=== PATIENT | female | born 1980 | race Caucasian/White ===

== ENCOUNTER 2016-08-06 07:41 | Emergency (ER) | payer OTHER ==
[~2016-08-06] VITALS: Ht 154.9 cm; Wt 76.2 kg
[~2016-08-06 07:41] MED LIST: HYDR-2666 PO; HYDR-971 PO; HYDR115S2 PO; IBUP-1060 PO; NAPR375T3 PO; NAPR500T PO
[2016-08-06 08:11] LABS: BILIRUBIN,URINE NEGATIVE (NEG); GLUCOSE,URINE NEGATIVE (NEG); NITRITE,URINE NEGATIVE (NEG); PH,URINE 6.5; PROTEIN,URINE NEGATIVE (NEG-TRACE); UROBILINOGEN,URINE 0.2 mg/dL (0.2 mg/dL)
[2016-08-06 08:24] LABS: BACTERIA,URINE FEW /HPF (0-FEW); RBC,URINE OCC /HPF (0-2); SQUAMOUS EPITHELIAL CELL,UR MANY /LPF
[2016-08-06] MEDS ORDERED: IV NORMAL SALINE 1000ML BAG 1,000 ML IV ONE (08:30)
[2016-08-06] MEDS ORDERED: METOCLOPRAMIDE HCL 10 MG/2 ML VIAL. IV ONE (08:30)
[2016-08-06] MEDS ORDERED: DIPHENHYDRAMINE 50 MG/ML VIAL IVP ONE (08:30)
--- NOTE | 2016-08-06 08:33 | PHYS DOC ---
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 She states that she has increased pressure and pain when she urinates. She does state she has a history of a right ovarian cyst. Patient states that she is also having a headache, migraine. She states that she has not taken anything for her headache. She states that she has had 4 emesis in the last 24 hours. She states that she's had a fever at home but is unable to provide the temperature. She denies vaginal discharge. Review of Systems Review of Systems Constitutional: Denies fever or chills [] Eyes: Denies change in visual acuity, redness, or eye pain [] HENT: Denies nasal congestion or sore throat [] Respiratory: Denies cough or shortness of breath [] Cardiovascular: No additional information not addressed in HPI [] GI: Denies abdominal pain, nausea, vomiting, bloody stools or diarrhea [] : dysuria denies hematuria [] Musculoskeletal: Patient complaint of flank pain denies any joint pain. Integument: Denies rash or skin lesions [] Neurologic: headache, denies focal weakness or sensory changes [] Current Medications Current Medications Current Medications Medications (Trade) Dose Ordered Sig/Natacha Start Time Stop Time Status Last Admin Dose Admin Diphenhydramine HCl 25 mg 25 mg 1X ONCE 08/06/16 08:30 08/06/16 08:31 DC 08/06/16 09:02 25 MG Ketorolac Tromethamine (Toradol) 30 mg 1X ONCE 08/06/16 09:45 08/06/16 09:50 DC 08/06/16 09:53 30 MG Metoclopramide HCl (Reglan) 10 mg 1X ONCE 08/06/16 08:30 08/06/16 08:31 DC 08/06/16 09:02 10 MG Sodium Chloride (Iv Sodium Chloride 0.9% 1000ml Bag) 1,000 ml @ 1,000 mls/hr 1X ONCE 08/06/16 08:30 08/06/16 09:29 DC 08/06/16 09:02 1,000 MLS/HR Allergies Allergies Allergies Coded Allergies Type Severity Reaction Last Updated Verified No Known Drug Allergies 11/22/15 No Physical Exam Physical Exam Constitutional: Well developed, well nourished, no acute distress, non-toxic appearance. [] HENT: Normocephalic, atraumatic, bilateral external ears normal, oropharynx moist, no oral exudates, nose normal. Bilateral tympanic membranes appear to be normal. Patient with throat with no erythematous. Eyes: PERRLA, EOMI, conjunctiva normal, no discharge. [] Neck: Normal range of motion, no tenderness, supple, no stridor. [] Cardiovascular:Heart rate regular rhythm, no murmur [] Lungs & Thorax: Bilateral breath sounds clear to auscultation [] Abdomen: Bowel sounds hypoactive, soft, with lower quadrant tenderness, no masses, no pulsatile masses. [] Skin: Warm, dry, no erythema, no rash. [] Back: No tenderness, left CVA tenderness Extremities: No tenderness, no cyanosis, no clubbing, ROM intact, no edema. [] Neurologic: Alert and oriented X 3, normal motor function, normal sensory function, no focal deficits noted. [] Psychologic: Affect normal, judgement normal, mood normal. [] Current Patient Data Vital Signs Vital Signs Date Time Temp Pulse Resp B/P Pulse Ox O2 Delivery O2 Flow Rate FiO2 08/06/16 10:30 92 101/56 97 Room Air 08/06/16 07:45 97.4 18 97.4 Lab Values Laboratory Tests Test 08/06/16 07:45 08/06/16 08:35 Urine Collection Type Unknown Urine Color Yellow Urine Clarity Clear Urine pH 6.5 Urine Specific [place] 1.015 Urine Protein Negativemg/dL (NEG-TRACE) Urine Glucose (UA) Negativemg/dL (NEG) Urine Ketones (Stick) Negativemg/dL (NEG) Urine Blood Negative (NEG) Urine Nitrite Negative (NEG) Urine Bilirubin Negative (NEG) Urine Urobilinogen Dipstick 0.2mg/dL (0.2 mg/dL) Urine Leukocyte Esterase Negative (NEG) Urine RBC Occ/HPF (0-2) Urine WBC 1-4/HPF (0-4) Urine Squamous Epithelial Cells Many/LPF Urine Bacteria Few/HPF (0-FEW) White Blood Count 7.7x10^3/uL (4.0-11.0) Red Blood Count 4.16x10^6/uL (3.50-5.40) Hemoglobin 13.0g/dL (12.0-15.5) Hematocrit 38.1% (36.0-47.0) Mean Corpuscular Volume 92fL (79-100) Mean Corpuscular Hemoglobin 31pg (25-35) Mean Corpuscular Hemoglobin Concent 34g/dL (31-37) Red Cell Distribution Width 13.3% (11.5-14.5) Platelet Count 280x10^3/uL (140-400) Neutrophils (%) (Auto) 88% (31-73) H Lymphocytes (%) (Auto) 5% (24-48) L Monocytes (%) (Auto) 6% (0-9) Eosinophils (%) (Auto) 0% (0-3) Basophils (%) (Auto) 1% (0-3) Neutrophils # (Auto) 6.8x10^3uL (1.8-7.7) Lymphocytes # (Auto) 0.4x10^3/uL (1.0-4.8) L Monocytes # (Auto) 0.4x10^3/uL (0.0-1.1) Eosinophils # (Auto) 0.0x10^3/uL (0.0-0.7) Basophils # (Auto) 0.0x10^3/uL (0.0-0.2) Segmented Neutrophils % 80% (35-66) H Band Neutrophils % 3% (0-9) Lymphocytes % 10% (24-48) L Monocytes % 4% (0-10) Eosinophils % 1% (0-5) Basophils % 1% (0-3) Metamyelocytes % 1% (0-0) H Platelet Estimate Adequate (ADEQUATE) Sodium Level 138mmol/L (136-145) Potassium Level 4.1mmol/L (3.5-5.1) Chloride Level 105mmol/L (98-107) Carbon Dioxide Level 24mmol/L (21-32) Anion Gap 9 (6-14) Blood Urea Nitrogen 8mg/dL (7-20) Creatinine 0.7mg/dL (0.6-1.0) Estimated GFR (Cockcroft-Gault) 94.2 BUN/Creatinine Ratio 11 (6-20) Glucose Level 97mg/dL (70-99) Calcium Level 8.7mg/dL (8.5-10.1) Total Bilirubin 0.4mg/dL (0.2-1.0) Aspartate Amino Transferase (AST) 29U/L (15-37) Alanine Aminotransferase (ALT) 27U/L (14-59) Alkaline Phosphatase 69U/L (46-116) Total Protein 7.0g/dL (6.4-8.2) Albumin 3.4g/dL (3.4-5.0) Albumin/Globulin Ratio 0.9 (1.0-1.7) L Laboratory Tests 08/06/16 08:35 Laboratory Tests 08/06/16 08:35 EKG EKG [] Radiology/Procedures Radiology/Procedures [facility] [address] [place] [address] IMAGING REPORT Signed PATIENT: LETTY COOLEY ACCOUNT: [id number] : 1980 LOCATION: ER AGE: 36 SEX: F EXAM STATUS: REG ER ORD. PHYSICIAN: NANCY DARLING NP REASON: left lower pelvic pain, HX LEFT ovarian cyst PROCEDURE: PELVIS W/TV Pelvic ultrasound, 08/06/2016: History: Left-sided pelvic pain Transabdominal and transvaginal scans were obtained. The uterus measures 8 x 5 x 6 cm. A smaller nabothian cyst is noted in the cervical region. The central uterine echo complex is at the upper limits of normal in thickness measuring approximately 12 mm. A tiny echogenic focus along the margin of the central uterine echo is compatible with a nonspecific calcification. The left ovary contains a 2 cm relatively isoechoic nodule. There appears to be internal vascularity. The right ovary is of normal size and contains small follicular cysts. There is blood flow in both ovaries. The adnexal regions are otherwise unremarkable. No free fluid is evident in the pelvis. IMPRESSION: Small solid appearing left ovarian nodule. Sonographic follow-up is suggested to exclude a neoplastic etiology. 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 PHYSICIAN: NANCY DARLING NP REASON: left flank pain PROCEDURE: RENAL COMPLETE BILATERAL Renal ultrasound, 08/06/2016: History: Left flank pain The right kidney measures 10.4 cm in length while the left kidney measures 10.1 cm. There is no evidence of hydronephrosis or a renal mass. The renal parenchymal echogenicity is within normal limits. Limited views of urinary bladder show no abnormality. IMPRESSION: No significant renal abnormality is detected. 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 (See chart for details) CBC CMP and UA are negative. Ultrasound was positive for neoplastic process on the left ovary. Provided patient with report of the CBC CMP and ultrasound. Patient will be put later with OB to Dr. Barnes follow up with. Patient was provided with signs and symptoms to return back to emergency department. Recommended ibuprofen every 8 hours as well as patient being provided with hydrocodone for severe pain and discomfort. Patient will be discharged home in stable condition signs and symptoms to return back to emergency department been provided. [] Dragon Disclaimer Dragon Disclaimer This electronic medical record was generated, in whole or in part, using a voice recognition dictation system. Departure Departure Impression: Primary Impression: Pelvic mass in female Additional Impression: Migraine headache Disposition: HOME, SELF-CARE Condition: STABLE Referrals: NO PCP (PCP) Patient Instructions: Migraine Headache, [id number], Pelvic Mass Additional Instructions: Home to rest Medication as prescribed [place] will cause drowsiness do not take if you need to be alert and oriented Ibuprofen 800 mg every 8 hours with food stop taking if you develop upset stomach Followup with Dr Bright in 3-5 days Return to emergency department as needed for signs and symptoms that become worse. Scripts Hydrocodone/Apap 5-325 ([place] 5-325 Tablet)1 Each Tablet1 Tab PO PRN Q6HRS PRN PAIN #6 TAB Prov:NANCY DARLING NP 08/06/16 Problem Qualifiers NANCY DARLING NP Aug 06, 2016 08:32
[2016-08-06 08:53] LABS: BASO % 1 % (0-3); EOS % 0 % (0-3); HEMATOCRIT 38.1 % (36.0-47.0); LYMPH # 0.4 x10^3/uL (1.0-4.8); LYMPH % 5 % (24-48); MEAN CORPUSCULAR HEMOGLOBIN 31 pg (25-35); MEAN CORPUSCULAR HGB CONC 34 g/dL (31-37); MEAN CORPUSCULAR VOLUME 92 fL (79-100); MONO % 6 % (0-9); NEUT % 88 % (31-73); PLATELET COUNT 280 x10^3/uL (140-400); RED BLOOD COUNT 4.16 x10^6/uL (3.50-5.40); RED CELL DISTRIBUTION WIDTH 13.3 % (11.5-14.5); WHITE BLOOD COUNT 7.7 x10^3/uL (4.0-11.0)
[2016-08-06 09:10] LABS: CALCIUM 8.7 mg/dL (8.5-10.1); CREATININE 0.7 mg/dL (0.6-1.0); GFR 94.2; POTASSIUM 4.1 mmol/L (3.5-5.1)
[2016-08-06 09:14] LABS: ALBUMIN 3.4 g/dL (3.4-5.0); ALBUMIN/GLOBULIN RATIO 0.9 (1.0-1.7); TOTAL BILIRUBIN 0.4 mg/dL (0.2-1.0)
[2016-08-06] MEDS ORDERED: KETOROLAC TROMETHAMINE 30 MG/ML SYRINGE. IV ONE (09:45)
[2016-08-06 10:33] LABS: % BASOS 1 % (0-3); % EOS 1 % (0-5)
[2016-08-06 10:47] LABS: PLT ESTIMATE ADEQUATE (ADEQUATE)
[2016-08-06 11:00] VITALS: BP 84/46
--- NOTE | 2016-08-06 11:19 | RAD ---
Renal ultrasound, 08/06/2016: History: Left flank pain The right kidney measures 10.4 cm in length while the left kidney measures 10.1 cm. There is no evidence of hydronephrosis or a renal mass. The renal parenchymal echogenicity is within normal limits. Limited views of urinary bladder show no abnormality. IMPRESSION: No significant renal abnormality is detected.
--- NOTE | 2016-08-06 11:25 | RAD ---
Pelvic ultrasound, 08/06/2016: History: Left-sided pelvic pain Transabdominal and transvaginal scans were obtained. The uterus measures 8 x 5 x 6 cm. A smaller nabothian cyst is noted in the cervical region. The central uterine echo complex is at the upper limits of normal in thickness measuring approximately 12 mm. A tiny echogenic focus along the margin of the central uterine echo is compatible with a nonspecific calcification. The left ovary contains a 2 cm relatively isoechoic nodule. There appears to be internal vascularity. The right ovary is of normal size and contains small follicular cysts. There is blood flow in both ovaries. The adnexal regions are otherwise unremarkable. No free fluid is evident in the pelvis. IMPRESSION: Small solid appearing left ovarian nodule. Sonographic follow-up is suggested to exclude a neoplastic etiology.
[2016-08-06] MEDS ORDERED: HYDR-971 PO (11:44)
== END 2016-08-06 11:46 | disposition home or self-care (01) ==
LOC: ER 07:41
DX: R19.00 Intra-abdominal and pelvic swelling, mass and lump, unspecified site (principal); G43.909 Migraine, unspecified, not intractable, without status migrainosus; J45.909 Unspecified asthma, uncomplicated
CPT/HCPCS: 36415; 76770; 76830; 76856; 80053; 81001; 81025; 85007; 85027; 96361; 96374; 96375; 99285; J1200; J1885; J2765; J7030

== ENCOUNTER → 2016-09-09 | Outpatient (CLI) | payer OTHER ==
[~2016-09-09] MED LIST changes: +GADOBUTROL 7.5 MMOL/7.5 ML VIAL IV ONE
--- NOTE | 2016-09-10 08:53 | KCIC ---
PROCEDURE MR pelvis with and without contrast. HISTORY Pelvic pain, left lower quadrant fullness and bloating. Abnormal pelvic ultrasound. TECHNIQUE Routine multiplanar multiple pulse sequence images of the pelvis are obtained before after 7 cc Gadovist IV contrast. COMPARISON [facility], pelvic ultrasound August 06, 2016. [facility] CT abdomen and pelvis with contrast and pelvic ultrasound November 07, 2015. FINDINGS There is motion artifact degrading image quality on the coronal T1 fat-sat postcontrast and the T2 axial sequences. The endometrial stripe is normal measuring 5 millimeters. There is a 6 millimeter nabothian cyst. Uterus is anteverted. No focal abnormality of the myometrium is seen. T2 hypo intense cervical stroma is maintained. The ovaries are symmetric in size. There are several small follicles of the right ovary, largest measuring 7 millimeters. A solid ovarian or paraovarian mass is not identified. Several tiny follicles of the left ovary are identified. Trace left adnexal free fluid. Urinary bladder is normal. No cul-de-sac free fluid is seen. Bilateral inguinal lymph nodes may be reactive. No dilated bowel is seen. Mild spondylitic disc of L5/S1, mild reactive endplate marrow edema. Pelvic bones unremarkable. IMPRESSION 1. No MR evidence of a solid ovarian or paraovarian mass. 2. Ovaries are symmetric in size and have several small follicles. There is trace left adnexal free fluid. 3. Nabothian cyst. Electronically signed by: Kailash Reza MD (Sep 10, 2016 08:51:53)
== END | disposition home or self-care (01) ==
LOC: KCIC MRI 09:06
PROVIDERS: ATTEND Nurse Practitioner Women's Health
DX: N88.8 Other specified noninflammatory disorders of cervix uteri (principal)
CPT/HCPCS: 72197; A9585

== ENCOUNTER 2017-04-14 17:19 | Emergency (ER) | payer OTHER ==
[~2017-04-14 17:19] MED LIST changes: -GADOBUTROL 7.5 MMOL/7.5 ML VIAL IV ONE; -HYDR-2666 PO; +HYDR-2758 PO; +NAPR-695 PO; -NAPR375T3 PO
[2017-04-14 17:30] VITALS: BP 121/77
--- NOTE | 2017-04-14 18:00 | PHYS DOC ---
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 States she's had some episodes of vomiting. She has been taking [id number] medications. Denies any diarrhea denies any abdominal pain or discomfort. Review of Systems Review of Systems Constitutional: Denies fever or chills [] Eyes: Denies change in visual acuity, redness, or eye pain [] HENT: nasal congestion denies sore throat [] Respiratory: cough denies shortness of breath [] Cardiovascular: No additional information not addressed in HPI [] GI: Denies abdominal pain, nausea, vomiting, bloody stools or diarrhea [] : Denies dysuria or hematuria [] Musculoskeletal: Denies back pain or joint pain [] Integument: Denies rash or skin lesions [] Neurologic: Denies headache, focal weakness or sensory changes [] Endocrine: Denies polyuria or polydipsia [] All other systems were reviewed and found to be within normal limits, except as documented in this note. Allergies Allergies Allergies Coded Allergies Type Severity Reaction Last Updated Verified No Known Drug Allergies 11/22/15 No Physical Exam Physical Exam Constitutional: Well developed, well nourished, no acute distress, non-toxic appearance. [] HENT: Normocephalic, atraumatic, bilateral external ears normal, oropharynx moist, no oral exudates, nose normal. Bilateral tympanic membranes appear to be normal. Throat with erythematous with postnasal drip noted. No exudate noted. Eyes: PERRLA, EOMI, conjunctiva normal, no discharge. [] Neck: Normal range of motion, no tenderness, supple, no stridor. [] Cardiovascular:Heart rate regular rhythm, no murmur [] Lungs & Thorax: Bilateral breath sounds clear to auscultation [] Skin: Warm, dry, no erythema, no rash. [] Extremities: No tenderness, no cyanosis, no clubbing, ROM intact, no edema. [] Neurologic: Alert and oriented X 3, normal motor function, normal sensory function, no focal deficits noted. [] Psychologic: Affect normal, judgement normal, mood normal. [] Current Patient Data Vital Signs Vital Signs Date Time Temp Pulse Resp B/P (MAP) Pulse Ox O2 Delivery O2 Flow Rate FiO2 04/14/17 17:30 98.0 98 18 100 Room Air 98.0 Lab Values Laboratory Tests Test 04/14/17 18:08 POC Urine HCG, Qualitative Hcg negative (Negative) EKG EKG [] Radiology/Procedures Radiology/Procedures [] Course & Med Decision Making Course & Med Decision Making Pertinent Labs and Imaging studies reviewed. (See chart for details) Patient states that she is late for her menstrual cycle. She'll be checked for , she will be placed on Augmentin for a sinusitis infection. She'll be provided with Zofran as well. Recommended plenty of fluids. I've spoken with the patient and/or caregivers. I've explained the patient's condition, diagnosis and treatment plan based on information available to me at this time. I've answered the patient's and/or caregivers questions and addressed any concerns. The patient and/or caregivers have a good understanding the patient's diagnosis, condition and treatment plan as can be expected at this point. Vital signs have been stabilized. The patient's condition is stable for discharge from the emergency department. The patient will pursue further outpatient evaluation with her primary care provider or other designated consulting physician as outlined in the discharge instructions. Patient and/or caregivers are agreeable to this plan of care and follow-up instructions have been explained in detail. The patient and/or caregivers have received these instructions in written format and expressed understanding of these discharge instructions. The patient and her caregivers are aware that if any significant change in condition or worsening of symptoms should prompt him to immediately return to this of the closest emergency department. If an emergent department is not readily available I would encourage him to call 911. [] Dragon Disclaimer Dragon Disclaimer This electronic medical record was generated, in whole or in part, using a voice recognition dictation system. Departure Departure Impression: Primary Impression: Sinusitis Disposition: HOME, SELF-CARE Condition: STABLE Referrals: NO PCP (PCP) Patient Instructions: Sinusitis, [id number] Additional Instructions: Activity as tolerated Medication as prescribed Sudafed and Mucinex DM as directed by manufacture Tylenol or Ibuprofen for fever, chills or generalized body aches Drink plenty of fluids such as water, propel or gatorade Followup with your primary care provider in 5-7 days Return to emergency department for signs and symptoms that become worse. Scripts Amoxicillin/Potassium Clav (AUGMENTIN 875-125 TABLET) 1 Each Tablet 1 TAB PO BID, #20 TAB Prov: NANCY DARLING APRN 04/14/17 NANCY DARLING APRN Apr 14, 2017 18:00
[2017-04-14] MEDS ORDERED: AMOX1TAB61 PO (18:27)
== END 2017-04-14 18:38 | disposition home or self-care (01) ==
LOC: ER 17:19
DX: J32.9 Chronic sinusitis, unspecified (principal); R11.10 Vomiting, unspecified; H92.03 Otalgia, bilateral; J45.909 Unspecified asthma, uncomplicated; F90.9 Attention-deficit hyperactivity disorder, unspecified type
CPT/HCPCS: 81025; 99283

== ENCOUNTER → 2018-02-13 | Outpatient (CLI) | payer OTHER ==
[~2018-02-13] MED LIST changes: +AMOX1TAB61 PO; +NAPR-683 PO; -NAPR500T PO
--- NOTE | 2018-02-13 15:54 | KCIC ---
EXAM: Pelvic sonogram. HISTORY: Pelvic pain. IUD assessment. Right ovary follow-up. TECHNIQUE: Transabdominal and transvaginal sonographic imaging of the pelvis was performed. COMPARISON: 09/09/2016. FINDINGS: The uterus measures 7.3 x 3.6 x 5.4 cm. The endometrial stripe measures 6.1 mm. There is an intrauterine contraceptive device within the endometrial cavity in expected position. The ovaries are normal in size and demonstrate normal blood flow. There are multiple ovarian follicles with a dominant left ovarian follicle/follicular cyst measuring 1.7 cm. There are calcifications within the cervix. There is no pelvic free fluid. IMPRESSION: 1. IUD within the endometrial cavity in expected position. 2. 1.7 cm dominant left ovarian follicle/follicular cyst. 3. Note is made that a previously reported right ovarian lesion is not seen on this exam. Electronically signed by: Bessy Moffett MD (02/13/2018 3:51 PM) [id number]
== END | disposition home or self-care (01) ==
LOC: KCIC US 14:24
PROVIDERS: ATTEND Family Medicine
DX: N83.02 Follicular cyst of left ovary (principal); N88.8 Other specified noninflammatory disorders of cervix uteri; I10 Essential (primary) hypertension; G43.909 Migraine, unspecified, not intractable, without status migrainosus; Z87.891 Personal history of nicotine dependence; Z97.5 Presence of (intrauterine) contraceptive device
CPT/HCPCS: 76830; 76856

== ENCOUNTER 2019-11-27 17:29 | Emergency (ER) | payer OTHER ==
[~2019-11-27] VITALS: Ht 154.9 cm; Wt 68.6 kg
[~2019-11-27 17:29] MED LIST changes: -HYDR-2758 PO; +HYDR-2761 PO; +HYDR-3164 PO; -HYDR-971 PO
[2019-11-27] MEDS ORDERED: ACETAMINOPHEN 500 MG TABLET PO ONE (18:15)
--- NOTE | 2019-11-27 18:54 | RAD ---
Exam: CT head and cervical spine without contrast INDICATION: Scalp laceration, neck pain, hit head on garage door TECHNIQUE: Sequential axial images through the head and cervical spine were obtained without the administration of IV contrast. Comparisons: None FINDINGS: Head: No focal parenchymal lesion or hemorrhage is identified. There is no midline shift or sulcal effacement. No acute vascular territory infarction is identified. Vora-white distinction is preserved. The ventricular system is within normal limits without compression hydrocephalus. The basal cisterns are well maintained. The visualized portions of the paranasal sinuses and mastoid air cells are well-pneumatized. No acute fractures. Cervical spine: Straightening of cervical spine which may be positional. Vertebral body heights are well maintained. Fracture to the cervical spine is not identified. There is mild facet arthropathy at C4-C5 on the right. Visualized paraspinal soft tissues are unremarkable. IMPRESSION: 1. No acute intracranial abnormality. 2. Negative CT C-spine for acute traumatic injury. Exposure: One or more of the following in the visualized dose reduction techniques were utilized for this examination: 1. Automated exposure control 2. Adjustment of the MA and/or KV according to patient size Use of iterative of reconstructive technique Electronically signed by: Keyla Talamantes MD (11/27/2019 6:51 PM) [id number]
--- NOTE | 2019-11-27 18:57 | PHYS DOC ---
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 Patient states she was trying to hold the garage door up for her father when something snapped in the garage door came crashing down on top of her head and caused her to fall. Patient denies any loss of consciousness, nausea, vomiting, abdominal pain, vision changes, or ringing in her ears. She reports that her last tetanus shot was less than 5 years ago. The patient currently rates her pain a 10 out of 10 on the pain scale, she denies any alleviating or exacerbating factors, she states that the pain in her neck radiates to her left shoulder and is worse with palpation (BRIDGET HDZ APRN) Review of Systems: Review of Systems: Constitutional: Denies fever or chills. [] Eyes: Denies change in visual acuity. [] HENT: Denies nasal congestion or sore throat; see HPI. [] Respiratory: Denies cough or shortness of breath. [] Cardiovascular: Denies chest pain or edema. [] GI: Denies abdominal pain, nausea, vomiting Musculoskeletal: See HPI Integument: See HPI Neurologic: See HPI Psychiatric: Denies depression or anxiety. [] (BRIDGET HDZ APRN) Heart Score: Risk Factors: Risk Factors: DM, Current or recent (<one month) smoker, HTN, HLP, family history of CAD, obesity. Risk Scores: Score 0 - 3: 2.5% MACE over next 6 weeks - Discharge Home Score 4 - 6: 20.3% MACE over next 6 weeks - Admit for Clinical Observation Score 7 - 10: 72.7% MACE over next 6 weeks - Early Invasive Strategies (BRIDGET HDZ APRN) Current Medications: Current Medications Medications (Trade) Dose Ordered Sig/Natacha Start Time Stop Time Status Last Admin Dose Admin Acetaminophen (Tylenol) 1,000 mg 1X ONCE 11/27/19 18:15 11/27/19 18:16 DC 11/27/19 18:19 1,000 MG (BRIDGET HDZ APRN) Allergies: Allergies: Allergies Coded Allergies Type Severity Reaction Last Updated Verified No Known Drug Allergies 11/22/15 No (BRIDGET HDZ APRN) Physical Exam: PE: Constitutional: Well developed, well nourished, no acute distress, non-toxic appearance. [] HENT: Normocephalic, bilateral external ears normal, nose normal. [] Eyes: PERRLA, EOMI, conjunctiva normal, no discharge. [] Neck: Normal range of motion, no stridor; diffuse bony cervical spine tenderness without crepitus or step-off, and left sternocleidomastoid TTP . [] Cardiovascular:Heart rate regular rhythm Lungs & Thorax: Respirations even and unlabored, no retractions, no respiratory distress Skin: Warm, dry, no erythema, no rash; 4 cm laceration noted to top of scalp, no active bleeding or visible foreign body. [] Extremities: No cyanosis, ROM intact, no edema. [] Neurologic: Alert and oriented X 3, no focal deficits noted. [] Psychologic: Affect normal, judgement normal, mood normal. [] (BRIDGET HDZ APRN) Current Patient Data: Vital Signs: Vital Signs Date Time Temp Pulse Resp B/P (MAP) Pulse Ox O2 Delivery O2 Flow Rate FiO2 11/27/19 17:56 98.4 95 14 124/76 (92) 96 Room Air 98.4 (BRIDGET HDZ APRN) EKG: EKG: [] (BRIDGET HDZ APRN) Radiology/Procedures: Radiology/Procedures: PROCEDURE: CT HEAD AND CERVICAL SPINE WO Exam: CT head and cervical spine without contrast INDICATION: Scalp laceration, neck pain, hit head on garage door TECHNIQUE: Sequential axial images through the head and cervical spine were obtained without the administration of IV contrast. Comparisons: None FINDINGS: Head: No focal parenchymal lesion or hemorrhage is identified. There is no midline shift or sulcal effacement. No acute vascular territory infarction is identified. Vora-white distinction is preserved. The ventricular system is within normal limits without compression hydrocephalus. The basal cisterns are well maintained. The visualized portions of the paranasal sinuses and mastoid air cells are well-pneumatized. No acute fractures. Cervical spine: Straightening of cervical spine which may be positional. Vertebral body heights are well maintained. Fracture to the cervical spine is not identified. There is mild facet arthropathy at C4-C5 on the right. Visualized paraspinal soft tissues are unremarkable. IMPRESSION: 1. No acute intracranial abnormality. 2. Negative CT C-spine for acute traumatic injury. Laceration Repair by me: Anesthesia: Topical let Location: Scalp Tendon/Joint/Nerves: No injury Foreign body: None detected after copious irrigation and exploration Technique: 5 surgical carole Complexity: No subcutaneous sutures/mucosal repair/edge excision Post Closure Length: 4 cm Patient's bleeding was easily controlled in the department and there is no indication of anemia. No evidence of compartment syndrome, neurologic injury, vascular injury, open joint, tendon laceration, or foreign body. Patient is appropriate for outpatient follow up. 48 hour wound check. [] (BRIDGET HDZ APRN) Course & Med Decision Making: Course & Med Decision Making Pertinent Labs and Imaging studies reviewed. (See chart for details) [] (BRIDGET HDZ APRN) Dragon Disclaimer: Dragon Disclaimer: This electronic medical record was generated, in whole or in part, using a voice recognition dictation system. (BRIDGET HDZ APRN) Departure Departure Impression: Primary Impression: Scalp laceration Qualified Codes: S01.01XA - Laceration without foreign body of scalp, initial encounter Additional Impressions: Head injury, acute, without loss of consciousness Qualified Codes: S09.90XA - Unspecified injury of head, initial encounter Cervical strain, acute Qualified Codes: S16.1XXA - Strain of muscle, fascia and tendon at neck level, initial encounter Disposition: HOME, SELF-CARE Condition: STABLE Referrals: NO PCP (PCP) Patient Instructions: Cervical Strain and Sprain with Rehab-SportsMed, Head Injury, Adult, [id number], Staple Wound Closure, [id number] Additional Instructions: Fill the prescriptions and take them as directed. Follow-up with your primary care doctor or return to the emergency room in 5 to 7 days to have the carole removed. You can also take Tylenol as needed for pain. Follow the head injury precautions provided. Follow-up with your primary care doctor in 1 to 2 days for reevaluation. Return to the ER if your symptoms worsen. Scripts Cyclobenzaprine Hcl (CYCLOBENZAPRINE HCL) 10 Mg Tablet 1 TAB PO TID PRN for PAIN, #30 TAB 0 Refills Prov: BRIDGET HDZ APRN 11/27/19 Naproxen (NAPROXEN) 500 Mg Tablet 1 TAB PO BID PRN for PAIN for 10 Days, #20 TAB 0 Refills Prov: BRIDGET HDZ APRN 11/27/19 Justicifation of Admission Dx: Justifications for Admission: Justification of Admission Dx: N/A (BRIDGET HDZ APRN) Attending Signature Attending Signature I have participated in the care of this patient and I have reviewed and agree with all pertinent clinical information above including history, exam, and recommendations. (NETO VANCE DO) BRIDGET HDZ APRN Nov 27, 2019 18:57 NETO VANCE DO Nov 28, 2019 04:12
[2019-11-27 19:17] VITALS: BP 114/79
[2019-11-27] MEDS ORDERED: LIDOCAINE/EPI/TETRACAINE TOPICAL GEL 3 ML. TP ONE (19:45)
[2019-11-27] MEDS ORDERED: NAPR-514 PO (20:12)
[2019-11-27] MEDS ORDERED: CYCL10TA2 PO (20:12)
[2019-11-27] MEDS ORDERED: CYCLOBENZAPRINE 10 MG TABLET. PO ONE (20:15)
== END 2019-11-27 20:20 | disposition home or self-care (01) ==
LOC: ER 17:29
DX: S01.01XA Laceration without foreign body of scalp, initial encounter (principal); S16.1XXA Strain of muscle, fascia and tendon at neck level, initial encounter; S09.90XA Unspecified injury of head, initial encounter; J45.909 Unspecified asthma, uncomplicated; F17.200 Nicotine dependence, unspecified, uncomplicated; W22.8XXA Striking against or struck by other objects, initial encounter; Y93.89 Activity, other specified; Y92.89 Other specified places as the place of occurrence of the external cause; Y99.8 Other external cause status
CPT/HCPCS: 12002; 70450; 72125; 99285-25

== ENCOUNTER 2019-12-06 12:46 | Emergency (ER) | payer OTHER ==
[~2019-12-06] VITALS: Ht 154.9 cm; Wt 68.6 kg
[~2019-12-06 12:46] MED LIST changes: +CYCL10TA2 PO; +NAPR-514 PO
[2019-12-06 12:59] VITALS: BP 131/76
--- NOTE | 2019-12-06 13:18 | PHYS DOC ---
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 Patient has 5 carole to the top of her head and her scalp. Edges are approximated. She is no signs of infection or swelling or tenderness. Patient is here today for staple removal. She denies any pain, headaches, fever, drainage, dizziness, LOC. (NANCY NORTON GRAVEL SCREENER) Review of Systems: Review of Systems: Constitutional: Denies fever or chills. [] Eyes: Denies change in visual acuity. [] HENT: Denies nasal congestion or sore throat. [] Respiratory: Denies cough or shortness of breath. [] Cardiovascular: Denies chest pain or edema. [] GI: Denies abdominal pain, nausea, vomiting, bloody stools or diarrhea. [] : Denies dysuria. [] Musculoskeletal: Denies back pain or joint pain. [] Integument: Denies rash. Scalp carole intact. [] Neurologic: Denies headache, focal weakness or sensory changes. [] Endocrine: Denies polyuria or polydipsia. [] Lymphatic: Denies swollen glands. [] Psychiatric: Denies depression or anxiety. [] (NANCY NORTON GRAVEL SCREENER) Heart Score: Risk Factors: Risk Factors: DM, Current or recent (<one month) smoker, HTN, HLP, family history of CAD, obesity. Risk Scores: Score 0 - 3: 2.5% MACE over next 6 weeks - Discharge Home Score 4 - 6: 20.3% MACE over next 6 weeks - Admit for Clinical Observation Score 7 - 10: 72.7% MACE over next 6 weeks - Early Invasive Strategies (NANCY NORTON GRAVEL SCREENER) Allergies: Allergies: Allergies Coded Allergies Type Severity Reaction Last Updated Verified No Known Drug Allergies 11/22/15 No (NANCY NORTON APRN) Physical Exam: PE: Constitutional: Well developed, well nourished, no acute distress, non-toxic appearance. [] HENT: Normocephalic, atraumatic, bilateral external ears normal, oropharynx moist, no oral exudates, nose normal. [] Eyes: PERRLA, EOMI, conjunctiva normal, no discharge. [] Neck: Normal range of motion, no tenderness, supple, no stridor. [] Cardiovascular:Heart rate regular rhythm, no murmur [] Lungs & Thorax: Bilateral breath sounds clear to auscultation [] Abdomen: Bowel sounds normal, soft, no tenderness, no masses, no pulsatile masses. [] Skin: Warm, dry, no erythema, no rash. Scalp carole intact [] Back: No tenderness, no CVA tenderness. [] Extremities: No tenderness, no cyanosis, no clubbing, ROM intact, no edema. [] Neurologic: Alert and oriented X 3, normal motor function, normal sensory function, no focal deficits noted. [] Psychologic: Affect normal, judgement normal, mood normal. [] (NANCY NORTON APRN) Current Patient Data: Vital Signs: Vital Signs Date Time Temp Pulse Resp B/P (MAP) Pulse Ox O2 Delivery O2 Flow Rate FiO2 12/06/19 12:59 97.8 101 16 131/76 (94) 96 Room Air 97.8 (NANCY NORTON APRN) EKG: EKG: [] (NANCY NORTON APRN) Radiology/Procedures: Radiology/Procedures: [] (NANCY NORTON APRN) Course & Med Decision Making: Course & Med Decision Making Pertinent Labs and Imaging studies reviewed. (See chart for details) See HPI. 5 carole are removed from the top of her scalp. Patient tolerated well. Edges are approximated and healed together. No signs of infection, no redness, no drainage. Afebrile. No tenderness with palpation. [] (NANCY NORTON APRN) Dragon Disclaimer: Dragon Disclaimer: This electronic medical record was generated, in whole or in part, using a voice recognition dictation system. (NANCY NORTON APRN) Departure Departure Impression: Primary Impression: Removal of staple Disposition: HOME, SELF-CARE Condition: STABLE Referrals: NO PCP (PCP) Patient Instructions: Staple Removal, Care After Additional Instructions: Follow-up with primary care provider if needed. Justicifation of Admission Dx: Justifications for Admission: Justification of Admission Dx: N/A (NANCY NORTON APRN) Attending Signature Attending Signature I have reviewed the PA/[employer]ATIONARY BOILER FIREMAN's note and plan of care. I was available for consultation as needed during the patient's visit in the emergency department. I agree with the clinical impression, plan, and disposition. (ROBERT HOPSON DO) NANCY NORTON APRN Dec 06, 2019 13:18 ROBERT HOPSON DO Dec 09, 2019 01:06
== END 2019-12-06 13:29 | disposition home or self-care (01) ==
LOC: ER 12:46
DX: S01.01XD Laceration without foreign body of scalp, subsequent encounter (principal); J45.909 Unspecified asthma, uncomplicated; F17.200 Nicotine dependence, unspecified, uncomplicated; X58.XXXD Exposure to other specified factors, subsequent encounter
CPT/HCPCS: 99281